=== PATIENT | male | born 1990 | race African-American/Black ===

== ENCOUNTER 2019-08-17 06:50 | Emergency (ER) | payer OTHER ==
[~2019-08-17] VITALS: Ht 167.6 cm; Wt 72.6 kg
[2019-08-17] MEDS ORDERED: PRILOSEC OTC20 MG PO (07:04)
[2019-08-17 07:42] LABS: ABSOLUTE EOSINOPHILS 0.2 thou/uL (0.0-0.7); ABSOLUTE LYMPHOCYTES 2.1 thou/uL (0.8-5.3); ABSOLUTE MONOCYTES 0.3 thou/uL (0.0-1.2); ABSOLUTE NEUTROPHILS 1.3 thou/uL (1.6-8.1); BASOPHILS 0.7 %; HEMATOCRIT 42.1 % (42.0-52.0); HEMOGLOBIN 14.7 gm/dL (14.0-18.0); LYMPHOCYTES 53.2 %; MCH 32.1 pg (26.0-34.0); MCHC 35.1 g/dL (28.0-37.0); MCV 91.5 fL (80.0-100.0); MONOCYTES 7.6 %; MPV 6.5 fl. (7.2-11.1); NUCLEATED RBCS 0 /100WBC; PLATELET COUNT* 292 thou/uL (150-400); POLYS 34.5 %; RDW-CV 13.1 % (10.5-14.5); WBC 3.9 thou/uL (4.0-11.0)
[2019-08-17 07:49] LABS: CALCIUM 8.4 mg/dL (8.5-10.1); CREATININE 1.1 mg/dL (0.6-1.3); POTASSIUM 4.3 mmol/L (3.5-5.1)
[2019-08-17 07:53] LABS: INR 1.2; PROTIME 11.8 Seconds (9.20-11.50)
[2019-08-17 07:54] LABS: ALBUMIN 3.6 g/dL (3.4-5.0); TOTAL BILIRUBIN 0.4 mg/dL (<0.1-1.0); TOTAL PROTEIN 7.2 g/dL (6.4-8.2)
[2019-08-17] MEDS ORDERED: MEDROLDOSEPACK PO (09:08)
[2019-08-17 09:27] VITALS: BP 113/67
--- NOTE | 2019-08-17 10:00 | EKG ---
[place] [address] ELECTROCARDIOGRAM REPORT Name: SERENADARRION P Room: [facility]#: [id number] Admission: 08/17/19 Attend Phys: Discharge: 08/17/19 Date of : 86 Date of Service: 08/17/19653 Report #: [id number] THIS REPORT FOR: //name// [facility] ED Test Date: 2019-08-17 Test Time: 06:54:28 Pat Name: DARRION LYONS Department: Room: Gender: Phlebotomist Medical Lab Assistant: : [id number] Requested By: Mary Lou Chacon Order Number: [id number] MD: Cipriano Sena Measurements Intervals [place] Rate: 60 P: 29 PA: 148 QRS: 22 QRSD: 91 T: 34 QT: 398 QTc: 398 Interpretive Statements Sinus rhythm No previous ECG available for comparison Electronically Signed On 08-17-2019 9:59:31 CDT by Cipriano Sena [email or web address] <ELECTRONICALLY SIGNED> By: Cipriano Sena MD, [facility] 08/17/1961 Cipriano Sena MD, FACC /EPI
== END 2019-08-17 09:28 | disposition home or self-care (01) ==
LOC: M.ERS 06:50
PROVIDERS: Personal Emergency Response Attendant
DX: N62 Hypertrophy of breast (principal); R07.89 Other chest pain; K21.9 Gastro-esophageal reflux disease without esophagitis